=== PATIENT | female | born 1980 | race American Indian/Alaskan Native ===

== ENCOUNTER 2019-01-15 16:13 | Inpatient (IN) | payer MEDICARE, MEDICAID | END 2019-02-03 11:12 | disposition still patient (30) | LOC: ADULT MH 01-30 21:55 | DX: F23 Brief psychotic disorder (principal); E11.9 Type 2 diabetes mellitus without complications; E78.5 Hyperlipidemia, unspecified; K21.9 Gastro-esophageal reflux disease without esophagitis ==